=== PATIENT | male | born 1950 ===

== ENCOUNTER 2018-12-08 12:31 | Emergency (ER) | payer MEDICARE, MEDICAID ==
--- NOTE | 2018-12-08 13:21 | EDM.PDOC ---
<Jenna Rebollar M - Last Filed: 12/08/18 13:25> ED HPI GENERAL MEDICAL PROBLEM - General Chief Complaint: General Stated Complaint: VIA NORTH AM Time Seen by Provider: 12/08/18 13:55 Source of Information: Reports: Patient History Limitations: Reports: No Limitations - History of Present Illness Onset: Today Onset Date: 12/07/18 Onset Time: 11:00 Duration: Constant Location: Reports: Chest Quality: Reports: Stabbing Severity: Moderate Improves with: Reports: None, Cold Therapy Associated Symptoms: Reports: No Other Symptoms Left Pain Score (Numeric/FACES): 9 Past Medical History - Infectious Disease History Infectious Disease History: Reports: Chicken Pox - Past Surgical History Respiratory Surgical History: Reports: Other (See Below) Other Respiratory Surgeries/Procedures: right lung resection, punctured lung Social & Family History - Tobacco Use Smoking Status *Q: Never Smoker - Caffeine Use Caffeine Use: Reports: Soda ED ROS GENERAL - Review of Systems Review Of Systems: See Below Constitutional: Reports: No Symptoms HEENT: Reports: No Symptoms Respiratory: Reports: No Symptoms Cardiovascular: Reports: No Symptoms Endocrine: Reports: No Symptoms GI/Abdominal: Reports: No Symptoms : Reports: No Symptoms Musculoskeletal: Reports: Other (left lower rib tenderness to palpation. ) Skin: Reports: No Symptoms Neurological: Reports: No Symptoms (denies hitting head. ) Psychiatric: Reports: No Symptoms Hematologic/Lymphatic: Reports: No Symptoms Immunologic: Reports: No Symptoms ED EXAM, GENERAL - Physical Exam Exam: See Below Exam Limited By: No Limitations General Appearance: Alert, WD/WN, No Apparent Distress Eye Exam: Bilateral Eye: EOMI, PERRL Ears: Hearing Grossly Normal Nose: Normal Inspection, Normal Mucosa, No Blood Throat/Mouth: Normal Inspection, Normal Lips, Normal Teeth, Normal Gums, Normal Oropharynx, Normal Voice, No Airway Compromise Head: Atraumatic, Normocephalic Neck: Normal Inspection Respiratory/Chest: No Respiratory Distress, Lungs Clear (left lung exam), Normal Breath Sounds, Other (Complains of point tenderness over lateral aspect of left lower rib area. No deformity noted to ribs. No ecchymosis or erythema noted. No hemoptosis. No shortness of breath. No dyspnea. ) Cardiovascular: Regular Rate, Rhythm, No Murmur, No Rub Back Exam: Normal Inspection, Full Range of Motion Extremities: Normal Inspection, Normal Range of Motion Neurological: Alert, Oriented, CN II-XII Intact, Normal Cognition, Normal Gait, No Motor/Sensory Deficits Psychiatric: Normal Affect, Normal Mood Skin Exam: Warm, Dry, Intact, Normal Color, No Rash Lymphatic: No Adenopathy Course - Vital Signs Last Recorded V/S: Last Vital Signs Temp 96.9 F 12/08/18 12:46 Pulse 68 12/08/18 12:46 Resp 16 12/08/18 12:46 BP 154/75 H 12/08/18 12:46 Pulse Ox 95 12/08/18 12:46 - Orders/Labs/Meds Orders: Active Orders 24 hr Category Date Time Status Chest 2V [CR] Routine Exams 12/08/18 13:11 Taken Departure - Departure Disposition: Home, Self-Care 01 Clinical Impression: Chest wall pain - Discharge Information Referrals: PCP,None [Primary Care Provider] - Forms: ED Department Discharge Additional Instructions: Use hydrocodone as needed for pain control, Please followup with your primary care provider in 3-5 days if not better, please call return to the emergency department with worsening of symptoms. <Kg Weldon - Last Filed: 12/08/18 13:55> ED EXAM, GENERAL - Physical Exam Free Text/Narrative:: Agree with exam below Respiratory/Chest: Normal Breath Sounds (No breath sounds detected on right side ), Other Departure - Departure Time of Disposition: 13:54 Condition: Fair - Assessment/Plan Plan: Assessment Acuity = acute Site and laterality = left-sided rib pain Etiology = secondary to a fall on ice Manifestations = pain with a deep breath Location of injury = Home Lab values = chest x-ray I did review films myself I cannot appreciate any acute process, the official read from radiology is pending Plan Prescription written for hydrocodone 5/325 one tab by mouth every 6 hours when necessary total #6 have him follow-up with his primary care in 3-5 days if no improvement Kg Meade MD was personally available for consultation in the ED. I have reviewed the chart and agree with the documentation as recorded by the [employer] Student, including the assessment, treatment plan and disposition. Kg Meade MD personally saw and examined the patient. I have reviewed and agree with the [employer] Student's findings. This note was dictated using [employer] voice recognition software please call with any questions on syntax or grammar.
--- NOTE | 2018-12-08 13:55 | CRLCR ---
INDICATION: Left rib pain after the patient fell on the ice. TECHNIQUE: Two-view chest. COMPARISON: None. FINDINGS: Complete opacification of the right hemithorax likely by fluid. The patient likely has undergone a right pneumonectomy. Old right-sided rib fractures. Hyperexpansion of left lung with mediastinal shift towards the right. Clear left lung. The visualized cardiac silhouette is grossly unremarkable. There are no acute displaced rib or sternal fractures identified. Spurring of the thoracic spine. IMPRESSION: 1. No acute cardiopulmonary process identified. 2. Volume loss right hemithorax almost certainly related to previous pneumonectomy. Multiple old right rib fractures. No acute displaced left rib fractures are identified. Dictated by Pantera Camargo MD @ Dec 08 2018 1:53PM Signed by Dr. Pantera Camargo @ Dec 08 2018 1:53PM
== END 2018-12-08 14:17 | disposition home or self-care (01) ==
LOC: JP.ED 12:31
DX: R07.81 Pleurodynia (principal); W00.9XXA Unspecified fall due to ice and snow, initial encounter
CPT/HCPCS: 71046; 99283; 99285